=== PATIENT | female | born 1980 | race Caucasian/White ===

== ENCOUNTER 2016-12-04 22:03 | Inpatient (IN) | payer BC ==
[~2016-12-04] VITALS: Ht 162.6 cm; Wt 118.0 kg
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
--- NOTE | 2016-12-04 23:09 | ED ORDER SUMMARY ---
..... Patient: ARELIS WATSON OrderSheet [facility] VisitID: [id number] [place] [address] 36y, F Registration Date/Time: 12/04/2016 ORDER SHEET Weight: 112.4 kg (stated) Allergies: No Known Drug Allergy GENERAL ORDERS: Humerus Left Urgent (22:18 12/04/2016 Ebenezer Thakkar) (Ack 22:21 [facility] Fatback Trimmer) (22:55 Marlon) Forearm Left Urgent (22:19 12/04/2016 Ebenezer Thakkar) (Ack 22:21 [facility] Fatback Trimmer) (22:55 Marlon) Ice (22:19 12/04/2016 Ebenezer Thakkar) (Ack 22:36 JQuivey R.N.) (23:33 JQuivey R.N.) Splint (UE) (Left) (posterior long arm) (Long Arm) (23:57 12/04/2016 Ebenezer Thakkar) (Ack 0:26 JQuivey R.N.) (Cancelled: Other0:28 Ebenezer Thakkar) MEDICATION ORDERS: IV FLUIDS: Morphine IV 4 mg (HIGH ALERT MEDICATION, NOW) (22:17 12/04/2016 Ebenezer Thakkar) (22:32 JQuivey R.N.) IV Saline Lock (22:19 12/04/2016 Ebenezer Thakkar) (22:31 JQuivey R.N.) Morphine IV 4 mg (HIGH ALERT MEDICATION, NOW) (23:44 12/04/2016 Ebenezer Thakkar) (23:48 JQuivey R.N.) Morphine IV 4 mg (NOW) (00:43 12/05/2016 JQuivey R.N. verbal order read back to Ebenezer Thakkar) (0:43 JQuivey R.N.) ORDER SHEET NOTES: [Electronically signed by Richy Spivey Dr. (01:12/05/2016)] [Electronically signed by Jameson Whiting R.N. (01:52 12/05/2016)] [Electronically locked/signed by Jameson Whiting R.N. (01:52 12/05/2016)]
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
--- NOTE | 2016-12-04 23:09 | ED ORDER SUMMARY ---
..... Patient: ARELIS WATSON OrderSheet [facility] VisitID: [id number] [place] [address] 36y, F Registration Date/Time: 12/04/2016 ORDER SHEET Weight: 112.4 kg (stated) Allergies: No Known Drug Allergy GENERAL ORDERS: Humerus Left Urgent (22:18 12/04/2016 Ebenezer Thakkar) (Ack 22:21 [facility] Converting Supervisor) (22:55 Marlon) Forearm Left Urgent (22:19 12/04/2016 Ebenezer Thakkar) (Ack 22:21 [facility] Converting Supervisor) (22:55 Marlon) Ice (22:19 12/04/2016 Ebenezer Thakkar) (Ack 22:36 JQuivey R.N.) (23:33 JQuivey R.N.) Splint (UE) (Left) (posterior long arm) (Long Arm) (23:57 12/04/2016 Ebenezer Thakkar) (Ack 0:26 JQuivey R.N.) (Cancelled: Other0:28 Ebenezer Thakkar) MEDICATION ORDERS: IV FLUIDS: Morphine IV 4 mg (HIGH ALERT MEDICATION, NOW) (22:17 12/04/2016 Ebenezer Thakkar) (22:32 JQuivey R.N.) IV Saline Lock (22:19 12/04/2016 Ebenezer Thakkar) (22:31 JQuivey R.N.) Morphine IV 4 mg (HIGH ALERT MEDICATION, NOW) (23:44 12/04/2016 Ebenezer Thakkar) (23:48 JQuivey R.N.) Morphine IV 4 mg (NOW) (00:43 12/05/2016 JQuivey R.N. verbal order read back to Ebenezer Thakkar) (0:43 JQuivey R.N.) ORDER SHEET NOTES: [Electronically signed by Richy Spivey Dr. (01:12/05/2016)] [Electronically signed by Jameson Whiting R.N. (01:52 12/05/2016)] [Electronically locked/signed by Jameson Whiting R.N. (01:52 12/05/2016)]
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
[2016-12-05] VITALS (12 sets, daily range): BP systolic 103–165; BP diastolic 50–78
--- NOTE | 2016-12-05 01:52 | ED MED RECONCILIATION SUMMARY ---
Patient: ARELIS WATSON Medication Reconciliation Report [facility] VisitID: [id number] [address] [place] [address] 36y, F Registration Date/Time: 12/04/2016 Weight: 112.4 kg Height/Length: 64 in. BMI: 42.6 ALLERGIES: No Known Drug Allergy The patient's Home Medications are listed below: THE FOLLOWING MEDICATIONS NEED TO BE RECONCILED: NexIUM Oral 40 mg, daily Zyrtec Allergy The source(s) of the original Home Medication information: Not obtained. The following Medications were given to the patient in the Emergency Department: Morphine [IVP] IVP 4 mg, administered: 12/04/2016 10:29:00 PM Morphine [IVP] IVP 4 mg, administered: 12/04/2016 11:46:00 PM Morphine [IVP] IVP 4 mg, administered: 12/05/2016 12:43:00 AM The following Medications were prescribed to the patient: None.
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
--- NOTE | 2016-12-05 01:52 | ED MED RECONCILIATION SUMMARY ---
Patient: ARELIS WATSON Medication Reconciliation Report [facility] VisitID: [id number] [address] [place] [address] 36y, F Registration Date/Time: 12/04/2016 Weight: 112.4 kg Height/Length: 64 in. BMI: 42.6 ALLERGIES: No Known Drug Allergy The patient's Home Medications are listed below: THE FOLLOWING MEDICATIONS NEED TO BE RECONCILED: NexIUM Oral 40 mg, daily Zyrtec Allergy The source(s) of the original Home Medication information: Not obtained. The following Medications were given to the patient in the Emergency Department: Morphine [IVP] IVP 4 mg, administered: 12/04/2016 10:29:00 PM Morphine [IVP] IVP 4 mg, administered: 12/04/2016 11:46:00 PM Morphine [IVP] IVP 4 mg, administered: 12/05/2016 12:43:00 AM The following Medications were prescribed to the patient: None.
--- NOTE | 2016-12-05 01:52 | ED MAR SUMMARY ---
..... Medication Administration Record [facility] [address] [place] [place] [address] Patient: ARELIS WATSON Visit ID: [id number] 36y, F Weight: 112.4 kg Height/Length: 64 in BMI: 42.6 ALLERGIES: No Known Drug Allergy Given 22:29 12/04/2016 Jameson Whiting, R.N. Medication Administered: MORPHINE [IVP], Dose: 4 mg IVP over 2 minute(s), Site: #1 right hand. Medication Ordered: Morphine IV 4 mg (HIGH ALERT MEDICATION, NOW). Given 23:46 12/04/2016 Jameson Whiting, R.N. Medication Administered: MORPHINE [IVP], Dose: 4 mg IVP over 2 minute(s), Site: #1 right hand. Medication Ordered: Morphine IV 4 mg (HIGH ALERT MEDICATION, NOW). Given 00:43 12/05/2016 Jameson Whiting, R.N. Medication Administered: MORPHINE [IVP], Dose: 4 mg IVP over 2 minute(s), Site: #1 right hand. Medication Ordered: Morphine IV 4 mg (NOW).
--- NOTE | 2016-12-05 01:52 | ED MAR SUMMARY ---
..... Medication Administration Record [facility] [address] [place] [address] Patient: ARELIS WATSON Visit ID: [id number] 36y, F Weight: 112.4 kg Height/Length: 64 in BMI: 42.6 ALLERGIES: No Known Drug Allergy Given 22:29 12/04/2016 Jameson Whiting, R.N. Medication Administered: MORPHINE [IVP], Dose: 4 mg IVP over 2 minute(s), Site: #1 right hand. Medication Ordered: Morphine IV 4 mg (HIGH ALERT MEDICATION, NOW). Given 23:46 12/04/2016 Jameson Whiting, R.N. Medication Administered: MORPHINE [IVP], Dose: 4 mg IVP over 2 minute(s), Site: #1 right hand. Medication Ordered: Morphine IV 4 mg (HIGH ALERT MEDICATION, NOW). Given 00:43 12/05/2016 Jameson Whiting, R.N. Medication Administered: MORPHINE [IVP], Dose: 4 mg IVP over 2 minute(s), Site: #1 right hand. Medication Ordered: Morphine IV 4 mg (NOW).
[2016-12-05] MEDS ORDERED: ZYRTEC ALLERGY10 M1 PO (02:01)
[2016-12-05] MEDS ORDERED: NEXIUM40 M1 PO (02:02)
--- NOTE | 2016-12-05 16:30 | Postoperative Progress Note ---
Postop Progress Note Preoperate Diagnosis: Fracture left humerus, radial nerve palsy Postoperative Diagnosis: Same Surgeon: Wenceslao Romano MD Anesthesia: General ETT Findings: Fracture left humerus, intact radial nerve. Procedure: ORIF left humerus, exploration radial nerve Complications? No Condition: Stable EBL: 400cc Blood Administered: 0 Specimen(s) removed? No Grafts or Implants? Yes Graft/Implant type: Plates and screws left humerus . (See nursing notes for details of grafts/implants)
--- NOTE | 2016-12-05 18:31 | DIAGNOSTIC IMAGING REPORT ---
PROCEDURE: XR HUMERUS - LEFT INDICATION: Postop ORIF left humerus fracture. TECHNIQUE: AP and lateral views. COMPARISON: Comparison made to intraoperative study earlier in the day (12/05/2016) and preoperative radiographs (12/04/2016). FINDINGS: There has been reduction of a midshaft fracture of the left humerus which is transfixed with two side plate and multiple screws (anatomic position). There is overlying subcutaneous emphysema. IMPRESSION: 1. Status open reduction and internal fixation of midshaft left humerus fracture (anatomic position).
--- NOTE | 2016-12-05 18:34 | DIAGNOSTIC IMAGING REPORT ---
PROCEDURE: XR FLUOROSCOPY OVER 1 HOUR INDICATION: Left humerus fracture surgery. TECHNIQUE: C-arm fluoroscopy was provided to Dr. Romano for intraoperative surgical procedure (1 minute 17 seconds, 7.8 mGy). AP and lateral C-arm views. COMPARISON: Comparison is made to preoperative radiographs of the left humerus on 12/04/2016. FINDINGS: There has been open reduction of mid shaft left femur fracture which is transfixed with a side plate and multiple screws (anatomic position). IMPRESSION: 1. C-arm fluoroscopy for open reduction and internal fixation of midshaft left humerus fracture performed by Dr. Romano (anatomic position).
[2016-12-06 02:51] VITALS: BP 131/66
[2016-12-06 03:25] VITALS: BP 131/66
[2016-12-06 07:01] VITALS: BP 134/75
--- NOTE | 2016-12-06 08:28 | Progress Note ---
Subjective General Afeb Hgb 11.9 WBC still elevated, but is less today. She has some active MP extension and there is light touch present throughout. The bandage is dry and clean. 1 + radial pulse and minimal distal edema. DC home today.
[2016-12-06] MEDS ORDERED: OXAYDO5 MG PO (08:33)
[2016-12-06] MEDS ORDERED: COATED ASPIRIN325 MG PO (08:34)
--- NOTE | 2016-12-06 08:35 | Provider's Discharge Care Plan ---
Problem, Goal, Plan Problem List 1. Fracture, humerus closed, shaft
--- NOTE | 2016-12-06 08:35 | Provider's Discharge Care Plan ---
Problem, Goal, Plan Problem List 1. Fracture, humerus closed, shaft
== END 2016-12-06 14:00 | disposition home or self-care (01) | DRG 494 ==
LOC: ED SRH 22:03 → ACUTE2 SRH 23:16 → TRANS SRH 23:16 → ACUTE2 SRH 12-05 01:25
PROVIDERS: ADMIT Orthopaedic Surgery
PROC: [UNRECOGNIZED PROCEDURE] (principal; 2016-12-05 09:45)
PROC: 0PSG04Z Reposition Left Humeral Shaft with Internal Fixation Device, Open Approach (ICD-10-PCS; principal; 2016-12-05 09:45)
DX: S42.342A Displaced spiral fracture of shaft of humerus, left arm, initial encounter for closed fracture (principal); S44.22XA Injury of radial nerve at upper arm level, left arm, initial encounter; V86.59XA Driver of other special all-terrain or other off-road motor vehicle injured in nontraffic accident, initial encounter; Y93.59 Activity, other involving other sports and athletics played individually; Y92.838 Other recreation area as the place of occurrence of the external cause; Y99.8 Other external cause status; K21.9 Gastro-esophageal reflux disease without esophagitis; J30.2 Other seasonal allergic rhinitis